=== PATIENT | female | born 2005 | race African-American/Black ===

== ENCOUNTER 2023-06-30 02:37 | Emergency (ER) | payer MEDICAID ==
[~2023-06-30] VITALS: Ht 152.4 cm; Wt 85.2 kg
[2023-06-30 02:55] VITALS: O2SAT 98
[2023-06-30 03:38] LABS: BASOPHILS % 1.1 % (0.0-2.0); DIFFERENTIAL COMMENT 0; EOSINOPHILS % 0.5 % (0.0-5.0); HEMATOCRIT. 38.2 % (36.0-48.0); HEMOGLOBIN. 12.7 g/dL (12.0-16.0); LYMPHOCYTES % 16.9 % (20.0-50.0); MEAN CORPUSCULAR HEMOGLOBIN 26.3 pg (28.0-32.0); MEAN CORPUSCULAR HGB CONC 33.2 g/dL (31.0-37.0); MEAN CORPUSCULAR VOLUME 79.1 fL (81.0-99.0); MEAN PLATELET VOLUME 8.3 fl (7.4-10.4); NEUTROPHILS % 76.5 % (40.0-76.0); PLATELET 249 x1000/uL (130-400); RED BLOOD CELL COUNT 4.83 mill/uL (4.2-5.4); RED CELL DISTRIBUTION WIDTH 13.4 % (11.6-14.6); WHITE BLOOD COUNT 11.5 x1000/uL (4.5-11.0)
[2023-06-30 04:00] LABS: CHLORIDE 104 mEq/L (98-107); POTASSIUM 3.8 mEq/L (3.5-5.1); SODIUM 135 mEq/L (136-145)
[2023-06-30 04:01] LABS: CALCIUM 9.8 mg/dL (8.7-10.4); CARBON DIOXIDE 23 mEq/L (21-32)
[2023-06-30 04:06] LABS: CREATININE 0.9 mg/dL (0.6-1.0); GLUCOSE 97 mg/dL (70-105); UREA NITROGEN BLOOD 6 mg/dL (9-23)
[2023-06-30 04:07] LABS: B-HCG QUANTITATIVE > 1000 mIU/mL (<3)
[2023-06-30] MEDS ORDERED: ACET-2708 MT (05:00)
[2023-06-30] MEDS: ACETAMINOPHEN 325MG TABLET PO NR (05:08)
[2023-06-30 05:30] VITALS: BP 118/55; PULSE 86; RESP 14; TEMP 98.7
== END 2023-06-30 05:37 | disposition home or self-care (01) ==
LOC: ER 02:37
DX: O03.9 Complete or unspecified spontaneous abortion without complication (principal); D64.9 Anemia, unspecified
CPT/HCPCS: 36415; 76830; 76856; 80048; 84702; 85025; 86850; 86900; 99284

== ENCOUNTER 2023-07-02 15:45 | Emergency (ER) | payer MEDICAID ==
[~2023-07-02] VITALS: Ht 154.9 cm; Wt 72.6 kg
[~2023-07-02 15:45] MED LIST: ACET-2708 MT
[2023-07-02 16:00] VITALS: BP 131/72; PULSE 84; RESP 16; TEMP 98.7; O2SAT 100
[2023-07-02 17:55] LABS: BASOPHILS % 0.5 % (0.0-2.0); EOSINOPHILS % 0.7 % (0.0-5.0); HEMATOCRIT. 36.8 % (36.0-48.0); LYMPHOCYTES % 22.8 % (20.0-50.0); MEAN CORPUSCULAR HEMOGLOBIN 26.1 pg (28.0-32.0); MEAN CORPUSCULAR HGB CONC 32.4 g/dL (31.0-37.0); MEAN CORPUSCULAR VOLUME 80.6 fL (81.0-99.0); MONOCYTES % 4.9 % (2.0-8.0); NEUTROPHILS % 71.1 % (40.0-76.0); PLATELET 268 x1000/uL (130-400); RED BLOOD CELL COUNT 4.57 mill/uL (4.2-5.4); RED CELL DISTRIBUTION WIDTH 13.5 % (11.6-14.6)
[2023-07-02 18:00] LABS: CHLORIDE 110 mEq/L (98-107); SODIUM 140 mEq/L (136-145)
[2023-07-02 18:01] LABS: CARBON DIOXIDE 22 mEq/L (21-32)
[2023-07-02 18:02] LABS: CALCIUM 9.4 mg/dL (8.7-10.4)
[2023-07-02 18:06] LABS: CREATININE 0.9 mg/dL (0.6-1.0); GLUCOSE 102 mg/dL (70-105); UREA NITROGEN BLOOD 9 mg/dL (9-23)
[2023-07-02 18:23] LABS: B-HCG QUANTITATIVE 13269 mIU/mL (<3)
== END 2023-07-02 22:49 | disposition home or self-care (01) ==
LOC: ER 15:45
DX: O26.891 Other specified pregnancy related conditions, first trimester (principal); N93.9 Abnormal uterine and vaginal bleeding, unspecified; Z3A.09 9 weeks gestation of pregnancy
CPT/HCPCS: 36415; 76801; 80048; 84702; 85025; 86850; 86900; 99284